=== PATIENT | female | born 2000 | race Two or more races ===

== ENCOUNTER 2025-05-28 08:47 | Inpatient (IN) | payer OTHER ==
[~2025-05-28] VITALS: Ht 162.6 cm; Wt 72.6 kg
--- NOTE | 2025-05-28 09:00 | NUR ---
SE RECIEB FEMINA HIPOACTIVA EN COMPANIA DE PERSONAL DE [place], QUIEN REFIERE FEMINA ESTA PRESENTANDO EPISODIOS DE CONVULSIONES. SE UBICA EN OBS, SE CONECTA MONITOR CARDIACO Y OXIMETRIA DE PULSO CONTINUA. SE RELAIZA RENE DE MUESTRAS DE LAB Y SE ADMINISTRA LILI DE MEDICAMENTOS PATI ORDEN MEDICA. PTE PENDIENTE A ESTUDIO, SE NOTIFICA.
[2025-05-28] MEDS ORDERED: KEPPRA500 MG PO (09:08)
[2025-05-28] MEDS ORDERED: 0.9 % SODIUM CHLORIDE 1,000 ML IV ONE (09:30)
[2025-05-28] MEDS ORDERED: LORazepam 2 MG/ML VIAL IV ONE ×3 (09:30→17:15)
[2025-05-28] MEDS ORDERED: DIPHENHYDRAMINE HCL 50 MG/ML VIAL 1ML ONE (09:57)
[2025-05-28] MEDS ORDERED: LORazepam 2 MG/ML VIAL ONE ×2 (09:58→17:02)
[2025-05-28 10:21] LABS: BASO % 0.5 % (0.1-1.2); EOS # 0.06 (0.04-0.54); EOS % 0.8 % (0.7-7.0); LYMPH # 1.82 (1.18-3.74); LYMPH % 24.5 % (19.3-53.1); MEAN PLATELET VOLUME 10.90 fl (9.4-12.4); MONO # 0.39 (0.24-0.82); MONO % 5.3 % (4.7-12.5); NEUT # 5.08 (1.56-6.13); NEUT % 68.5 % (34.0-71.1); RED CELL DISTRIBUTION WIDTH 12.4 % (11.6-14.4)
[2025-05-28 10:44] LABS: INR 1.04
[2025-05-28 10:50] LABS: ALT/SGPT 33 U/L (12-78); AST/SGOT 28 U/L (15-37); BILIRUBIN TOTAL 0.18 mg/dL (0.3-1.2); BUN CREA RATIO 21 (7.0-25.0); CREATININE SERUM 0.90 mg/dL (0.55-1.02); GFR 76.29; GLOBULINA 4.5 G/DL (2.4-3.5); GLUCOSE FASTING 91 mg/dL (65-100); OSMOLALITY SERUM 283 MOSM/KG (275-295); PHOSPHOKINASE CREATININE 105 U/L (26-192)
[2025-05-28 11:00] LABS: HCG QUANTITATIVE < 1 mUI/mL (1-3)
[2025-05-28 11:04] LABS: COVID-19 AG NEGATIVE (NEGATIVE)
[2025-05-28 11:30] LABS: URINE APPEARANCE Clear; URINE BILIRRUBIN Negative (NEGATIVE); URINE BLOOD Moderate; URINE COLOR Yellow; URINE GLUCOSE Negative (NEGATIVE); URINE KETONE Negative (NEGATIVE); URINE LEUKOCYTE Moderate; URINE NITRATE Negative; URINE PROTEIN Negative (NEGATIVE); URINE UROBILINOGEN 1.0 E.U./dl
[2025-05-28 11:34] LABS: URINE EPITHELIAL CELLS 15.6 uL (0.0-38.8); URINE RBC 5.3 uL (0.0-20.8); URINE WBC 129.2 uL (0.0-23.2)
[2025-05-28 11:55] LABS: URINE CAST 0.42 uL (0.0-1.40)
[2025-05-28 12:02] LABS: COCAINE NEGATIVE (NEGATIVE); METHADONE NEGATIVE (NEGATIVE); OPIATES NEGATIVE (NEGATIVE); THC ( Cannabinoids) NEGATIVE (NEGATIVE)
[2025-05-28] MEDS ORDERED: CEFTRIAXONE SODIUM 1,000 MG VIAL IV ONE (12:30)
[2025-05-28] MEDS ORDERED: CEFTRIAXONE SODIUM 1,000 MG VIAL ONE (13:32)
[2025-05-28] MEDS ORDERED: ACETAMINOPHEN 500 MG GEL..CAP PO SCH (21:45)
[2025-05-28] MEDS ORDERED: FAMOTIDINE/PF 20 MG in 0.9 % SODIUM CHLORIDE 100 ML IV SCH (21:45)
[2025-05-28] MEDS ORDERED: LORazepam 2 MG/ML VIAL IV PRN (21:45)
[2025-05-28] MEDS ORDERED: CEFTRIAXONE SODIUM 2,000 MG in 0.9 % SODIUM CHLORIDE 100 ML IV SCH (21:45)
[2025-05-29 05:36] LABS: BASO % 0.4 % (0.1-1.2); EOS # 0.07 (0.04-0.54); EOS % 1.0 % (0.7-7.0); LYMPH # 1.86 (1.18-3.74); LYMPH % 26.3 % (19.3-53.1); MEAN PLATELET VOLUME 10.60 fl (9.4-12.4); MONO # 0.45 (0.24-0.82); MONO % 6.4 % (4.7-12.5); NEUT # 4.66 (1.56-6.13); NEUT % 65.8 % (34.0-71.1); RED CELL DISTRIBUTION WIDTH 12.3 % (11.6-14.4)
[2025-05-29] MEDS ORDERED: KETOROLAC TROMETHAMINE 30 MG VIAL IV PRN (08:15)
[2025-05-29] MEDS ORDERED: LORazepam 2 MG/ML VIAL ONE (08:29)
[2025-05-29] MEDS ORDERED: LORazepam 2 MG/ML VIAL IV PUSH NR (09:00)
[2025-05-29] MEDS ORDERED: LevETIRAcetam 500 MG TAB. PO SCH (09:00)
[2025-05-29 09:38] VITALS: BP 98/55; O2SAT 97
[2025-05-29] MEDS ORDERED: LORazepam 2 MG/ML VIAL IV PRN (15:15)
[2025-05-29 18:57] VITALS: BP 119/80; O2SAT 98
[2025-05-29 22:32] VITALS: BP 114/74; O2SAT 97
[2025-05-30 02:57] VITALS: BP 103/67; O2SAT 98
[2025-05-30 09:09] VITALS: BP 103/61
[2025-05-30] MEDS ORDERED: DIVALPROEX SODIUM 500 MG TAB.ER.24H PO NR (12:00)
[2025-05-30 16:58] VITALS: BP 111/67; O2SAT 100
[2025-05-30] MEDS ORDERED: DIVALPROEX SODIUM 500 MG TAB.ER.24H PO SCH (17:00)
[2025-05-31 02:02] VITALS: BP 99/57; O2SAT 99
[2025-05-31 09:20] VITALS: BP 138/72
[2025-05-31 21:25] VITALS: BP 97/65
[2025-06-01 03:49] VITALS: BP 90/52; O2SAT 97
[2025-06-01 08:42] VITALS: BP 97/60; O2SAT 98
== END 2025-06-01 13:26 | disposition home or self-care (01) | DRG 101 ==
LOC: EDBD 08:48 → ER 08:48 → MEDI 21:53
PROVIDERS: General Practice; ADMIT Internal Medicine; ATTEND Internal Medicine
PROC: B020ZZZ Computerized Tomography (CT Scan) of Brain (ICD-10-PCS; principal; 2025-05-28)
PROC: B020ZZZ Computerized Tomography (CT Scan) of Brain (ICD-10-PCS; 2025-05-29)
PROC: B020ZZZ Computerized Tomography (CT Scan) of Brain (ICD-10-PCS; 2025-05-31)
DX: G40.802 Other epilepsy, not intractable, without status epilepticus (principal); N39.0 Urinary tract infection, site not specified; Q04.6 Congenital cerebral cysts